=== PATIENT | male | born 1975 | race Caucasian/White ===

== ENCOUNTER 2022-05-02 14:06 | Emergency (ER) | payer BC ==
[~2022-05-02] VITALS: Ht 170.2 cm; Wt 79.4 kg
[2022-05-02 15:23] VITALS: BP_SYST 122
--- NOTE | 2022-05-02 15:40 | NUR ---
Placed in room 3 . Placed on laboratory monitor, blood pressure machine and pulse oximeter. To gown for exam. Side rails up. Report given to Oh. Addendum: 05/02/22 at 1542 by [email or web address] Placed in room 3 . Placed on laboratory monitor, blood pressure machine and pulse oximeter. To gown for exam. Side rails up. Report given to Palmer.
--- NOTE | 2022-05-02 15:42 | NUR ---
DR. HINSON AT BEDSIDE EXAMINING THE PT.
[2022-05-02] MEDS ORDERED: METOCLOPRAMIDE HCL 10 MG/2 ML VIAL IVP ONE (15:45)
[2022-05-02] MEDS ORDERED: MECLIZINE HCL 25 MG TABLET (ANITVERT) PO ONE (15:45)
--- NOTE | 2022-05-02 15:45 | NUR ---
PT BIB FAMILY FROM HOME WITH C/O SEVERE HEADACHE, N/V AND DIZZINESS SENTATION THAT STARTED THIS MORNING. HX - NO MEDICAL HX. PT AAXO4, VSS, NAD, BREATHING IS EVEN AND UNLABORED. PT AMBULATORY WITH STEADY GAIT. 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 HOB ELEVATED, SIDE RIALS UP, BED IN LOWEST POSITION,CALL LIGHT WITHIN REACH. SAFETY PRECUATIONS AND COMFORT MEASURES IN PLACE. PENDING MD CARCAMO AND ORDERS.
[2022-05-02 16:08] LABS: BASOPHILS % (AUTO) 0.2 % (0.0-2.0); EOSINOPHILS % (AUTO) 0.1 % (0.0-4.0); HEMATOCRIT 44.9 % (36-54); HEMOGLOBIN 15.6 g/dL (14.0-18.0); LYMPHOCYTES # (AUTO) 0.5 K/uL (1.0-5.5); MEAN CORPUSCULAR HEMOGLOBIN 30 pg (27-31); MEAN CORPUSCULAR HGB CONC 35 % (32-36); MEAN CORPUSCULAR VOLUME 87 fL (79.0-98.0); MONOCYTES # (AUTO) 0.2 K/uL (0.0-1.0); MONOCYTES % (AUTO) 1.7 % (1.7-9.3); NEUTROPHILS # (AUTO) 10.1 K/uL (1.8-7.7); PLATELET COUNT (AUTO) 178 K/uL (130-430); RED BLOOD CELL COUNT(AUTO) 5.17 MIL/uL (4.2-6.2); RED CELL DISTRIBUTION WIDTH 13.2 % (9.0-15.0); WHITE BLOOD COUNT (AUTO) 10.9 K/uL (4.8-10.8)
[2022-05-02 16:26] LABS: ANION GAP 7 (5-15); CALCIUM 8.9 mg/dL (8.4-11.0); CHLORIDE 102 mmol/L (98-107); CREATININE 0.92 mg/dL (0.55-1.30); GFR AFRICAN AMERICAN 113 mL/min (>90); GLUCOSE 125 mg/dL (70-99); UREA NITROGEN, BLOOD 13 mg/dL (8-21)
[2022-05-02 16:33] LABS: ALANINE AMINOTRANSFERASE 25 U/L (12-78); ALBUMIN 4.2 g/dL (3.4-4.8); ASPARTATE AMINOTRANSFERASE 21 U/L (10-37); TOTAL BILIRUBIN 0.6 mg/dL (0.0-1.0)
[2022-05-02] MEDS ORDERED: MECL-261 PO (16:55)
--- NOTE | 2022-05-02 18:06 | NUR ---
PT MEDICALLY CLEARED FOR D/C. D/C INSTRUCTIONS GIVEN TO PT. PT TO FOLLOW-UP WITH PCP WITHIN 1-3 DAYS AND TO RETURN TO ED FOR WORSENING S/S. PT VERBALIZED UNDERSTANDING. PT AAOX4, NAD, VSS, WRITSTBAND REMOVED. PT AMBULATORY WITH STEADY GAIT. PT LEFT WITH ALL BELONGINGS.
[2022-05-02 18:08] VITALS: BP_SYST 125
== END 2022-05-02 18:08 | disposition home or self-care (01) ==
LOC: SED 14:06
DX: R42 Dizziness and giddiness (principal); R51.9 Headache, unspecified; R11.2 Nausea with vomiting, unspecified; Z79.899 Other long term (current) drug therapy
CPT/HCPCS: 99285; 96374; 70450; 71045; 80053; 85025; 84484; 36415; 93005; 76376; J8597; J2765